=== PATIENT | male | born 1955 | race Caucasian/White ===

== ENCOUNTER 2017-09-03 17:49 | Observation (INO) | payer BC ==
[2017-09-03] MEDS ORDERED: NITROGLYCERIN SL TABS 0.4 MG TAB SUBLINGUAL PRN (17:59)
[2017-09-03] MEDS ORDERED: MORPHINE SULFATE 5 MG/ML SYRINGE IV PRN (17:59)
[2017-09-03] MEDS ORDERED: HEPARIN SODIUM,PORCINE 5,000 UNIT/ML 1 ML VIAL IV PRN (17:59)
--- NOTE | 2017-09-03 18:00 | ED ---
General Adult HPI - General Chief complaint: Dizziness Stated complaint: dizziness Time Seen by Provider: 09/03/17 17:50 Source: patient, RN notes reviewed, old records reviewed Mode of arrival: EMS Limitations: no limitations - History of Present Illness Initial comments: This is a 62-year-old male to the ER for evaluation of chest pain shortness of breath and dizziness. Patient was seen in urgent care transferred to ER. Patient has received medical history positive for ST elevated OH. Patient presented for urgent care and sent to emergency room after noticing low blood pressure urgent care. Patient's 49 been feeling fine since his OH until today. He felt lightheaded and dizzy, with chest pain. Patient is feeling mildly improved from prior. No nausea no vomiting no fevers. - Related Data Home Medications Medication Instructions Recorded Confirmed Albuterol Inhaler [Ventolin Hfa 2 puff INHALATION RT-QID PRN 08/18/17 09/03/17 Inhaler] Aspirin EC [Ecotrin Low Dose] 81 mg PO DAILY 08/18/17 09/03/17 Clotrimazole/Betamethasone Dip 1 applic TOPICAL BID 08/18/17 09/03/17 [Lotrisone Cream] HYDROcodone/APAP 5-325MG [Zimm[place] 1 - 2 tab PO Q4-6H PRN 08/18/17 09/03/17 5-325] LORazepam [Ativan] 0.5 mg PO Q6H PRN 08/18/17 09/03/17 Multivitamins, Thera [Multivitamin 1 tab PO DAILY 08/18/17 09/03/17 (formulary)] Ondansetron HCl [Zofran] 4 mg PO Q6H PRN 08/18/17 09/03/17 Prochlorperazine [Compazine] 10 mg PO Q6H PRN 08/18/17 09/03/17 Tamsulosin [Flomax] 0.4 mg PO DAILY 08/18/17 09/03/17 Dronabinol [Marinol] 2.5 mg PO AC-TID 09/03/17 09/03/17 Losartan [Cozaar] 50 mg PO DAILY 09/03/17 09/03/17 Previous Rx's Medication Instructions Recorded Atorvastatin [Lipitor] 80 mg PO HS #30 tab 08/22/17 Metoprolol Tartrate [Lopressor] 25 mg PO BID #60 tab 08/22/17 Nitroglycerin Sl Tabs [Nitrostat] 0.4 mg SUBLINGUAL Q5M PRN #20 tab 08/22/17 Spironolactone [Aldactone] 25 mg PO DAILY #30 tab 08/22/17 Ticagrelor [Brilinta] 90 mg PO BID #60 tab 08/22/17 Allergies Allergy/AdvReac Type Severity Reaction Status Date / Time Penicillins Allergy Mild Rash/Hives Verified 09/03/17 18:11 peanut Allergy Rash/Hives Verified 09/03/17 18:11 Review of Systems ROS Statement: Those systems with pertinent positive or pertinent negative responses have been documented in the HPI. ROS Other: All systems not noted in ROS Statement are negative. Past Medical History Past Medical History: Cancer, Myocardial Infarction ([place]) Additional Past Medical History / Comment(s): stage 4 pancreatic cancer, lung cancer, liver cancer History of Any Multi-Drug Resistant Organisms: None Reported Past Surgical History: Heart Catheterization With Stent Additional Past Surgical History / Comment(s): hernia repair Past Anesthesia/Blood Transfusion Reactions: No Reported Reaction Past Psychological History: No Psychological Hx Reported Smoking Status: Never smoker Past Alcohol Use History: None Reported Past Drug Use History: None Reported General Exam Limitations: no limitations General appearance: alert, in no apparent distress Head exam: Present: atraumatic, normocephalic, normal inspection Eye exam: Present: normal appearance, PERRL, EOMI. Absent: scleral icterus, conjunctival injection, periorbital swelling ENT exam: Present: normal exam, mucous membranes moist Neck exam: Present: normal inspection. Absent: tenderness, meningismus, lymphadenopathy Respiratory exam: Present: normal lung sounds bilaterally. Absent: respiratory distress, wheezes, rales, rhonchi, stridor Cardiovascular Exam: Present: regular rate, normal rhythm, normal heart sounds. Absent: systolic murmur, diastolic murmur, rubs, gallop, clicks GI/Abdominal exam: Present: soft, normal bowel sounds. Absent: distended, tenderness, guarding, rebound, rigid Extremities exam: Present: normal inspection, full ROM, normal capillary refill. Absent: tenderness, pedal edema, joint swelling, calf tenderness Back exam: Present: normal inspection Neurological exam: Present: alert, oriented X3, CN II-XII intact Psychiatric exam: Present: normal affect, normal mood Skin exam: Present: warm, dry, intact, normal color. Absent: rash Course Vital Signs 09/03/17 17:55 Temperature 98 F Pulse Rate 79 Respiratory 16 Rate Blood Pressure 121/74 O2 Sat by Pulse 96 Oximetry - Reevaluation(s) Reevaluation #1: 09/03/17 18:26 Prior hospitalization is reviewed Reevaluation #2: 09/03/17 18:27 Well work prior to transfer as reviewed EKG Findings - EKG Comments: EKG Findings:: EKG shows normal sinus rhythm rate of 79, NM 16, QRS 100, QTc 433 Medical Decision Making - Medical Decision Making 62 male the ER for evaluation of chest pain and dizziness. Patient's recent ST elevated [place], patient will be admitted for cardiac evaluation and treatment, management and monitoring of hemodynamic state - Radiology Data Radiology results: report reviewed (Chest x-ray is negative for acute disease), image reviewed Critical Care Time Critical Care Time: Yes Total Critical Care Time: 31 Disposition Clinical Impression: Chest pain Disposition: ADMITTED IP TO THIS [facility] Condition: Fair Referrals: Marcos Tomas DO [Primary Care Provider] - 1-2 days
--- NOTE | 2017-09-03 18:24 | XR ---
EXAMINATION TYPE: XR chest 2V DATE OF EXAM: 09/03/2017 COMPARISON: 08/18/2017 HISTORY: Dizziness TECHNIQUE: Frontal and lateral views of the chest are obtained. FINDINGS: There is small linear density in the right midlung. There is slight elevated right diaphra gm. There is no heart failure. There is left central venous catheter with tip in the superior vena ca va. There is no pleural effusion. There is spurring in the thoracic spine. There are chest leads. IMPRESSION: Mild subsegmental atelectasis in the right midlung. No change compared to old exam. Norm al heart. Persistent left side mediastinal density.
[2017-09-03] MEDS: HEPARIN SOD,PORK IN 0.45% NACL 25,000 UNIT in 0.45% NACL 1 500ML.BAG IV SCH ×2 (18:32→18:43)
[2017-09-03] MEDS: HEPARIN SODIUM,PORCINE 5,000 UNIT/ML 1 ML VIAL IV ONE ×2 (18:32→18:35)
[2017-09-03] MEDS: SODIUM CHLORIDE 0.9% 1,000 ML IV SCH (18:35)
[2017-09-03] MEDS ORDERED: ONDANSETRON 4 MG TAB PO PRN (21:30)
[2017-09-03 21:52] LABS: Creatine Kinase 20 U/L (55-170)
[2017-09-03 22:06] LABS: Creatine Kinase MB 0.4 ng/mL (0.0-2.4); Troponin I <0.012 ng/mL (0.000-0.034)
[2017-09-03] MEDS: TICAGRELOR 90 MG TAB PO SCH (22:16)
[2017-09-03] MEDS: METOPROLOL TARTRATE 25 MG TAB PO SCH (22:16)
[2017-09-03] MEDS: ATORVASTATIN 80 MG TAB PO SCH (22:16)
[2017-09-03] MEDS: HYDROcodone/APAP 5-325MG 1 EACH TAB PO PRN (22:19)
[2017-09-04 04:10] LABS: Mean Platelet Volume 7.4; Platelet Count 286 k/uL (150-450)
[2017-09-04 04:25] LABS: Creatine Kinase <20 U/L (55-170)
[2017-09-04 04:40] LABS: Creatine Kinase MB 0.4 ng/mL (0.0-2.4); Troponin I 0.014 ng/mL (0.000-0.034)
[2017-09-04 04:54] LABS: Cholesterol <50 mg/dL (<200); HDL Cholesterol 31 mg/dL (40-60); LDL Cholesterol,Calculated 4 mg/dL (0-99); Triglycerides 73 mg/dL (<150)
[2017-09-04] MEDS: HYDROcodone/APAP 5-325MG 1 EACH TAB PO PRN ×2 (05:36→21:42)
[2017-09-04] MEDS: SODIUM CHLORIDE 0.9% 1,000 ML IV SCH ×2 (05:57→12:21)
[2017-09-04] MEDS: TICAGRELOR 90 MG TAB PO SCH ×2 (08:26→21:43)
[2017-09-04] MEDS: METOPROLOL TARTRATE 25 MG TAB PO SCH ×2 (08:26→21:42)
[2017-09-04] MEDS ORDERED: ASPIRIN 81 MG PO SCH (09:00)
[2017-09-04] MEDS ORDERED: ASPIRIN 325 MG TAB PO SCH (09:00)
--- NOTE | 2017-09-04 09:26 | P.CRDCN ---
History of Present Illness Consult date: 09/04/17 Requesting physician: Grady Patel Consult reason: shortness of breath, hypotension Chief complaint: Weakness, hypotension, and shortness of breath History of present illness: His is a pleasant 62-year-old gentleman with known history of coronary artery disease who presented to the hospital with an acute inferior posterior lateral myocardial infarction in July of this year. He was taken to the cardiac catheterization lab by Dr. Ling where he was found to have a subtotally occluded distal right coronary artery with very large intracoronary thrombus., Mild disease in the circumflex he underwent angioplasty and stenting of the RCA with 3 stents. Echocardiogram with Doppler study performed at that time revealed an ejection fraction of 40-45%. Inferior lateral hypokinesia. Overall the patient states that since his discharge he was up walking around the house without any difficulty. Just recently patient started to notice, that he was feeling more and more weak, dizzy, and lightheaded, he states that with minimal activity he becomes extremely short of breath. He did see Dr. Ling in the office just this past Friday, Dr. Ling apparently made some medication adjustments felt that that may be contributing to his symptoms of weakness and hypotension. Because the exertional dyspnea and dizziness continued he resented to [facility], and was subsequently transferred here. Lab data at [facility] was reviewed, white blood cell count 9, hemoglobin 11.8, platelet count 292. Sodium 136, potassium 4.4, chloride 101, CO2 21, troponin 0.06. Patient does have stage IV pancreatic cancer, with metastases to the liver and lung, history also of hypertension and hyperlipidemia. White blood cell count 9, hemoglobin 11.8, platelet count 292. EKG performed at [facility] shows a normal sinus rhythm with inferior T-wave inversion and Q waves. EKG on presentation here showed a normal sinus rhythm with inferior ST changes and inferior Q waves. Chest x-ray reveals mild subsegmental atelectasis in the right midlung. Let pressure on presentation here 120/70 with a heart rate in the 70s, 96% on room air. Blood pressure this morning 108/60, heart rate in the 60s. Supply and troponins performed here 0.012,.014. Past Medical History Past Medical History: Cancer, Myocardial Infarction ([place]) Additional Past Medical History / Comment(s): stage 4 pancreatic cancer, lung cancer, liver cancer Last Myocardial Infarction Date:: July 2017 History of Any Multi-Drug Resistant Organisms: None Reported Past Surgical History: Heart Catheterization With Stent Additional Past Surgical History / Comment(s): hernia repair Past Anesthesia/Blood Transfusion Reactions: No Reported Reaction Date of Last Stent Placement:: July 2017 Past Psychological History: No Psychological Hx Reported Smoking Status: Never smoker Past Alcohol Use History: None Reported Past Drug Use History: None Reported Medications and Allergies Home Medications Medication Instructions Recorded Confirmed Type Albuterol Inhaler [Ventolin Hfa 2 puff INHALATION RT-QID PRN 08/18/17 09/03/17 History Inhaler] Aspirin EC [Ecotrin Low Dose] 81 mg PO DAILY 08/18/17 09/03/17 History Clotrimazole/Betamethasone Dip 1 applic TOPICAL BID 08/18/17 09/03/17 History [Lotrisone Cream] HYDROcodone/APAP 5-325MG [Liberty 1 - 2 tab PO Q4-6H PRN 08/18/17 09/03/17 History 5-325] LORazepam [Ativan] 0.5 mg PO Q6H PRN 08/18/17 09/03/17 History Multivitamins, Thera [Multivitamin 1 tab PO DAILY 08/18/17 09/03/17 History (formulary)] Ondansetron HCl [Zofran] 4 mg PO Q6H PRN 08/18/17 09/03/17 History Prochlorperazine [Compazine] 10 mg PO Q6H PRN 08/18/17 09/03/17 History Tamsulosin [Flomax] 0.4 mg PO DAILY 08/18/17 09/03/17 History Atorvastatin [Lipitor] 80 mg PO HS #30 tab 08/22/17 09/03/17 Rx Metoprolol Tartrate [Lopressor] 25 mg PO BID #60 tab 08/22/17 09/03/17 Rx Nitroglycerin Sl Tabs [Nitrostat] 0.4 mg SUBLINGUAL Q5M PRN #20 tab 08/22/1703/15 Rx Spironolactone [Aldactone] 25 mg PO DAILY #30 tab 08/22/17 09/03/17 Rx Ticagrelor [Brilinta] 90 mg PO BID #60 tab 08/22/17 09/03/17 Rx Dronabinol [Marinol] 2.5 mg PO AC-TID 09/03/17 09/03/17 History Losartan [Cozaar] 50 mg PO DAILY 09/03/17 09/03/17 History Allergies Allergy/AdvReac Type Severity Reaction Status Date / Time Penicillins Allergy Mild Rash/Hives Verified 09/03/17 18:11 peanut Allergy Rash/Hives Verified 09/03/17 18:11 Physical Exam Vitals: Vital Signs Temp Pulse Pulse Resp BP BP Pulse Ox 09/04/17 04:00 97.3 F L 64 18 107/67 96 09/03/17 23:46 75 18 09/03/17 23:39 99.1 F 75 18 102/58 96 09/03/17 21:20 18 09/03/17 21:00 97.1 F L 88 18 119/67 99 09/03/17 20:01 80 18 117/60 95 09/03/17 18:43 79 16 109/60 96 09/03/17 17:55 98 F 79 16 121/74 96 Intake and Output 09/03/17 09/04/17 09/04/17 22:59 06:59 14:59 Intake Total 140.596 Balance 140.596 Intake: Intake, IV Titration 140.596 Amount Heparin Sod,Pork in 0.45% 140.596 NaCl 25,000 unit In 0.45 % NaCl 1 500ml.bag @ 10.3 UNITS/KG/HR 19.99 mls/hr IV .Q24H [facility] Rx#: [id number] Other: Voiding Method Toilet Toilet # Voids 1 1 Weight 97.1 kg 97.5 kg PHYSICAL EXAMINATION: HEENT: Head is atraumatic, normocephalic. Pupils equal, round. Neck is supple. There is no elevated jugular venous pressure. HEART EXAMINATION: Heart S1, S2 normal. No murmur or gallop heard. CHEST EXAMINATION: Lungs are clear to auscultation and precussion. No chest wall tenderness is noted on palpation or with deep breathing. ABDOMEN: Soft, nontender. Bowel sounds are heard. No organomegaly noted. EXTREMITIES: 2+ peripheral pulses with no evidence of peripheral edema and no calf tenderness noted. NEUROLOGIC patient is awake, alert and oriented -3. . Results 09/04/17 03:36 Cardiac Enzymes 09/03/17 09/04/17 Range/Units 20:58 03:36 CK-MB (CK-2) 0.4 0.4 (0.0-2.4) ng/mL Troponin I <0.012 0.014 (0.000-0.034) ng/mL Coagulation 09/04/17 09/04/17 Range/Units 00:18 06:52 APTT 35.1 H 55.6 H (22.0-30.0) sec Lipids 09/04/17 Range/Units 03:36 Triglycerides 73 (<150) mg/dL Cholesterol <50 (<200) mg/dL HDL Cholesterol 31 L (40-60) mg/dL CBC 09/04/17 Range/Units 03:36 Plt Count 286 (150-450) k/uL Current Medications Generic Name Dose Route Start Last Admin Trade Name Freq PRN Reason Stop Dose Admin Hydrocodone Bitart/Acetaminophen 1 each 09/03/17 21:30 09/04/17 05:36 Liberty 5-325 PO 1 each Q8HR PRN Administration Pain Aspirin 81 mg 09/04/17 09:00 09/04/17 08:26 Aspirin PO 81 mg DAILY [facility] Administration Atorvastatin Calcium 80 mg 09/03/17 22:00 09/03/17 22:16 Lipitor PO 80 mg HS [facility] Administration Heparin Sodium (Porcine) 0 unit 09/03/17 17:59 09/04/17 01:45 Heparin IV 4,000 unit Q6HR PRN Administration Low PTT Protocol Heparin Sodium/Sodium Chloride 500 mls @ 19.99 mls/hr 09/03/17 18:00 01:45 25,000 unit/ Sodium Chloride IV 13.3 units/kg/hr .Q24H [facility]AN 25.82 mls/hr Protocol Titration 10.3 UNITS/KG/HR Sodium Chloride 1,000 mls @ 100 mls/hr 09/03/17 18:00 09/04/17 05:57 Saline 0.9% IV Not Given .Q10H [facility] Metoprolol Tartrate 25 mg 09/03/17 21:00 09/04/17 08:26 Lopressor PO 25 mg BID [facility]AN Administration Morphine Sulfate 4 mg 09/03/17 17:59 Morphine Sulfate IV Q5M PRN Chest Pain Nitroglycerin 0.4 mg 09/03/17 17:59 Nitrostat SUBLINGUAL Q5M PRN Chest Pain Ondansetron HCl 4 mg 09/03/17 21:30 09/03/17 22:16 Zofran PO 4 mg Q6H PRN Administration Nausea Ticagrelor 90 mg 09/03/17 21:30 09/04/17 08:26 Brilinta PO 90 mg BID L[facility]AN Administration Intake and Output 09/03/17 09/04/17 09/04/17 22:59 06:59 14:59 Intake Total 140.596 Balance 140.596 Intake: Intake, IV Titration 140.596 Amount Heparin Sod,Pork in 0.45% 140.596 NaCl 25,000 unit In 0.45 % NaCl 1 500ml.bag @ 10.3 UNITS/KG/HR 19.99 mls/hr IV .Q24H [facility] Rx#: [id number] Other: Voiding Method Toilet Toilet # Voids 1 1 Weight 97.1 kg 97.5 kg 09/04/17 03:36 EKG Interpretations (text) EKG shows normal sinus rhythm with inferior ST T-wave changes and Q waves noted. Assessment and Plan Plan: Assessment and plan #1 symptoms of progressive weakness, dizziness, and exertional shortness of breath. Patient was noted to be hypotensive at [facility] prior to transfer here. Blood pressure this morning 108/60 with a heart rate in the 60s. #2 recent inferior posterior lateral myocardial infarction with stenting of the RCA #3 hypertension history #4 stage IV pancreatic cancer with metastases to the lung and liver #5 hyperlipidemia Plan Echocardiogram with Doppler study performed in July revealed an ejection fraction of 45%, evidence of inferior lateral hypokinesia. We will repeat an echo this admission, we will also request a d-dimer be performed to rule out the possibility of pulmonary embolism. denies having any chest discomfort. No PND or orthopnea. We will continue aspirin, Lipitor, metoprolol tartrate, and Brilinta. Further recommendations to follow. DNP note has been reviewed, I agree with a documented findings and plan of care. Patient was seen and examined.
[2017-09-04] MEDS ORDERED: RX INFO: IV CONTRAST WAS GIVEN 1 EACH MISC MISCELLANE PRN (10:23)
[2017-09-04] MEDS ORDERED: PROCHLORPERAZINE 10 MG TAB PO PRN (11:15)
[2017-09-04] MEDS ORDERED: NITROGLYCERIN SL TABS 0.4 MG TAB SUBLINGUAL PRN (11:15)
[2017-09-04] MEDS ORDERED: LORazepam 0.5 MG TAB PO PRN (11:15)
[2017-09-04] MEDS ORDERED: ALBUTEROL NEBULIZED 2.5 MG/3 ML INHALATION PRN (11:15)
[2017-09-04 11:23] VITALS: BMI 33.6
[2017-09-04 11:28] LABS: Anion Gap 9 mmol/L; Blood Urea Nitrogen 23 mg/dL (9-20); Carbon Dioxide 22 mmol/L (22-30); Chloride 107 mmol/L (98-107); Glucose 87 mg/dL (74-99); Potassium 4.3 mmol/L (3.5-5.1); Sodium 138 mmol/L (137-145)
--- NOTE | 2017-09-04 12:09 | ECHOF ---
Referral Reason:near syncope MEASUREMENTS -------- HEIGHT: 170.2 cm WEIGHT: 97.1 kg BP: 91/48 RVIDd: 3.2 cm (< 3.3) IVSd: 1.6 cm (0.6 - 1.1) LVIDd: 3.6 cm (3.9 - 5.3) LVPWd: 1.3 cm (0.6 - 1.1) IVSs: 1.8 cm LVIDs: 1.2 cm LVPWs: 2.0 cm Ao Diam: 3.1 cm (2.0 - 3.7) AV Cusp: 1.9 cm (1.5 - 2.6) LA Diam: 2.8 cm (2.7 - 3.8) MV EXCURSION: 19.436 mm (> 18.000) MV EF SLOPE: 67 mm/s (70 - 150) EPSS: 0.9 cm MV E Joshua: 0.66 m/s MV DecT: 283 ms MV A Joshua: 0.75 m/s MV E/A Ratio: 0.88 RAP: 5.00 mmHg RVSP: 14.63 mmHg FINDINGS -------- Sinus rhythm. This was a technically difficult study with suboptimal views. The left ventricular size is normal. There is moderate concentric left ventricular hypertrophy. O verall left ventricular systolic function is low-normal with, an EF between 50 - 55 %. The right ventricle is mildly enlarged. The left atrium is normal in size. The right atrium is normal in size. 1.5mg of Definity was utilized for enhancement of images The aortic valve is trileaflet, and appears structurally normal. No aortic stenosis or regurgitation. The mitral valve leaflets are mildly thickened. There is trace mitral regurgitation. Trace tricuspid regurgitation present. The right ventricular systolic pressure, as measured by Dopp ler, is 14.63mmHg. Pulmonic valve appears structurally normal. The aortic root size is normal. The pericardium is normal. CONCLUSIONS -------- 1. Sinus rhythm. 2. This was a technically difficult study with suboptimal views. 3. The left ventricular size is normal. 4. There is moderate concentric left ventricular hypertrophy. 5. Overall left ventricular systolic function is low-normal with, an EF between 50 - 55 %. 6. The right ventricle is mildly enlarged. 7. The left atrium is normal in size. 8. The right atrium is normal in size. 9. 1.5mg of Definity was utilized for enhancement of images 10. The aortic valve is trileaflet, and appears structurally normal. No aortic stenosis or regurgitat ion. 11. The mitral valve leaflets are mildly thickened. 12. There is trace mitral regurgitation. 13. Trace tricuspid regurgitation present. 14. The right ventricular systolic pressure, as measured by Doppler, is 14.63mmHg. 15. Pulmonic valve appears structurally normal. 16. The aortic root size is normal. 17. The pericardium is normal. ASSOCIATE QUALITY ENGINEER: Kiara Kate RDCS
[2017-09-04] MEDS: DRONABINOL 2.5 MG CAP PO SCH ×2 (12:18→16:56)
--- NOTE | 2017-09-04 12:50 | P.PN ---
Progress Note - Text Patient presented with shortness of breath. No angina no chest pain very different from the symptoms he experienced during his prior admission for acute SD. Normal cardiac enzymes. Normal renal function abnormal d-dimer. In view of his pancreatic cancer a CT angios the chest to rule out pulmonary embolism would be appropriate
--- NOTE | 2017-09-04 13:03 | CT ---
EXAMINATION TYPE: CT angio chest DATE OF EXAM: 09/04/2017 COMPARISON: 09/03/2017 chest radiograph HISTORY: Cough, history of pancreatic, lung and liver cancer CT DLP: 458.1 mGycm. Automated Exposure Control for Dose Reduction was Utilized. CONTRAST: CTA scan of the thorax is performed with IV Contrast, patient injected with 100 mL of Omnipaque 350, pulmonary embolism protocol. MIP Images are created on CT scanner and reviewed. FINDINGS: LUNGS: Innumerable bilateral pulmonary nodules are seen the largest on marked on lung window images. The largest pulmonary nodule on the left is located within the left lower lobe near the lingula measu ring 4 mm and the largest on the right measures 5 mm within the right lower lobe on image 66. Scatter ed areas of subsegmental atelectasis are seen as well as air trapping at the lung apices. MEDIASTINUM: Numerous enlarged mediastinal lymph nodes are seen within the prevascular space, right p aratracheal space, pretracheal space, and aorticopulmonary window. The largest in the prevascular spa ce on image 36 measures 1.9 x 1.9 cm. Left supraclavicular adenopathy is also seen somewhat blending with the sternocleidomastoid muscle on image 8 measuring 9 mm in short axis and on image 12 measuring 8 mm in short axis. Left-sided Mediport is noted. There is satisfactory enhancement of the pulmonary artery and its branches, there is no CT evidence for pulmonary embolism. No cardiomegaly or pericard ial effusion is seen. OTHER: Small volume perihepatic ascites is present. The liver is low attenuation, limiting evaluation for hepatic masses and relating to underlying hepatic steatosis. Haziness is seen around the portal vein and multiple nonenlarged lymph nodes are seen in the gastrohepatic ligament region. Spleen is en larged measuring 14.4 cm in longitudinal dimension. Pancreas appears bulbous. Multilevel moderate deg enerative changes of the thoracic spine are present. Lytic lesions are seen of the T2 and T3 vertebra l bodies measuring 5 mm and 11 mm respectively. IMPRESSION: 1. No evidence of pulmonary embolus. 2. Innumerable subcentimeter pulmonary nodules suspicious for metastasis. 3. Extensive mediastinal adenopathy within the superior mediastinum and left supraclavicular adenopat hy also suspicious for metastatic involvement. 4. Small volume abdominal ascites. 5. Hepatic steatosis and splenomegaly.
--- NOTE | 2017-09-04 15:18 | HP ---
HISTORY AND PHYSICAL CHIEF COMPLAINT: Shortness of breath, dizziness and weakness. HISTORY OF PRESENT ILLNESS: This is another recent admission for this 62-year-old, white male. He just went home several days ago after having 4 stents placed in his RCA. He was home when he suddenly became short of breath, dizzy and felt very weak. He became somewhat diaphoretic and blood pressure dropped. He came to the emergency room where he was readmitted. Enzymes are normal. He denied any chest pain, abdominal pain, palpitations, orthopnea, PND, syncope, etc. REVIEW OF SYSTEMS: Otherwise unremarkable. He has had no fever, chills, cough, hemoptysis, nausea, vomiting, hematemesis, melena, hematochezia, dysuria, hematuria, frequency, etc. Past medical history, family history, personal and social histories are all otherwise unremarkable and noncontributory and can be found in his recent admitting and discharge summaries. PHYSICAL EXAM: Blood pressure is 114/60 with a pulse of 94, respirations of 30 and he is afebrile. In general, he appeared to be well developed, well nourished, in no acute distress. Skin color is normal. Skin is warm, dry. Lymph nodes are not enlarged. Head, ears, eyes, nose, mouth, and throat were normal and neck veins were not distended. Thyroid is not enlarged. The chest is clear. The cardiac exam is normal. There are no murmurs or extra sounds. The abdomen is soft, nontender without visceromegaly or masses. Bowel sounds are present. The extremities are normal. Neurologically he is intact. IMPRESSION: 1. Episode of weakness, dizziness and shortness of breath. 2. Hypotension. 3. Coronary artery disease, status post stenting of his right coronary artery. 4. Insomnia. PLAN: 1. Bed rest. 2. IV fluids. 3. Serial EKGs and enzymes. 4. Consult with Cardiology. MMODL / IJN: [id number] /
--- NOTE | 2017-09-04 15:27 | PN ---
PROGRESS NOTE DATE OF SERVICE: 09/04/17 CHIEF COMPLAINT: Shortness of breath, dizziness and weakness with hypotension. HISTORY OF PRESENT ILLNESS: This gentleman seems to be doing fine now. He has had no pain, diaphoresis, shortness of breath, etc. PHYSICAL EXAM: His color is good. Chest is clear. Cardiac exam is unremarkable. The abdomen is soft, nontender. Extremities are normal. IMPRESSION: 1. Episode of shortness of breath, dizziness and weakness with hypotension. 2. Coronary artery disease. PLAN: Continue with IV fluids and await the balance of cardiac enzymes as well as recommendations from Cardiology. MMODL / IJN: [id number] /
[2017-09-04] MEDS: HEPARIN SOD,PORK IN 0.45% NACL 25,000 UNIT in 0.45% NACL 1 500ML.BAG IV SCH (17:44)
[2017-09-04] MEDS ORDERED: METOPROLOL TARTRATE 25 MG TAB PO SCH (21:00)
[2017-09-04] MEDS: ATORVASTATIN 80 MG TAB PO SCH (21:42)
[2017-09-05] MEDS ORDERED: traZODone HCL 50 MG TAB PO PRN (00:02)
[2017-09-05] MEDS: HYDROmorphone 1 MG/ML 1 ML SYRINGE IVP PRN ×2 (00:25→04:43)
[2017-09-05] MEDS: CLOTRIMAZOLE/BETAMETH 1-0.05% CREAM 45 GM TUBE TOPICAL SCH ×2 (00:57→07:36)
[2017-09-05] MEDS: SODIUM CHLORIDE 0.9% 1,000 ML IV SCH ×2 (01:28→09:44)
[2017-09-05 06:09] LABS: Mean Platelet Volume 7.5; Platelet Count 265 k/uL (150-450)
[2017-09-05] MEDS: DRONABINOL 2.5 MG CAP PO SCH ×2 (07:36→13:30)
[2017-09-05] MEDS: METOPROLOL TARTRATE 25 MG TAB PO SCH (07:36)
[2017-09-05] MEDS: TICAGRELOR 90 MG TAB PO SCH (07:36)
[2017-09-05] MEDS: HYDROcodone/APAP 5-325MG 1 EACH TAB PO PRN (07:39)
[2017-09-05] MEDS ORDERED: LOSARTAN 50 MG TAB PO SCH (09:00)
[2017-09-05] MEDS ORDERED: TAMSULOSIN 0.4 MG CAP.ER.24H PO SCH (09:00)
[2017-09-05] MEDS ORDERED: SPIRONOLACTONE 25 MG TAB PO SCH (09:00)
[2017-09-05] MEDS ORDERED: ASPIRIN 81 MG PO SCH (09:00)
[2017-09-05] MEDS: HEPARIN SOD,PORK IN 0.45% NACL 25,000 UNIT in 0.45% NACL 1 500ML.BAG IV SCH (09:44)
--- NOTE | 2017-09-05 11:21 | P.PN ---
Subjective Progress Note Date: 09/05/17 Principal diagnosis: Shortness of breath and hypotension This is a pleasant 62-year-old gentleman with known history of coronary artery disease who presented to the hospital with an acute inferior posterior lateral myocardial infarction in July of this year. He was taken to the cardiac catheterization lab by Dr. Ling where he was found to have a subtotally occluded distal right coronary artery with very large intracoronary thrombus., Mild disease in the circumflex he underwent angioplasty and stenting of the RCA with 3 stents. Echocardiogram with Doppler study performed at that time revealed an ejection fraction of 40-45%. Inferior lateral hypokinesia. Overall the patient states that since his discharge he was up walking around the house without any difficulty. Just recently patient started to notice, that he was feeling more and more weak, dizzy, and lightheaded, he states that with minimal activity he becomes extremely short of breath. He did see Dr. Ling in the office just this past Friday, Dr. Ling apparently made some medication adjustments felt that that may be contributing to his symptoms of weakness and hypotension. Because the exertional dyspnea and dizziness continued he resented to [facility], and was subsequently transferred here. Lab data at [facility] was reviewed, white blood cell count 9, hemoglobin 11.8, platelet count 292. Sodium 136, potassium 4.4, chloride 101, CO2 21, troponin 0.06. Patient does have stage IV pancreatic cancer, with metastases to the liver and lung, history also of hypertension and hyperlipidemia. White blood cell count 9, hemoglobin 11.8, platelet count 292. EKG performed at [facility] shows a normal sinus rhythm with inferior T-wave inversion and Q waves. EKG on presentation here showed a normal sinus rhythm with inferior ST changes and inferior Q waves. Chest x-ray reveals mild subsegmental atelectasis in the right midlung. Let pressure on presentation here 120/70 with a heart rate in the 70s, 96% on room air. Blood pressure this morning 108/60, heart rate in the 60s. Supply and troponins performed here 0.012,.014. 09/05/2017 CAT scan of the chest was performed, did not reveal any evidence of a pulmonary embolism. Innumerable pulmonary nodules suspicious for metastases. Extensive mediastinal adenopathy within the superior mediastinotomy in the left supraclavicular adenopathy also suspicious for metastatic involvement. Echocardiogram with Doppler study reveals an ejection fraction of 50-55%. Breathing today is overall stable, patient states that when he walks the hol[place], he returns back to bed and shortly thereafter becomes short of breath. Denies any chest discomfort. Blood pressure 102/50 with a heart rate in the 70s. Objective - Vital Signs Vital signs: Vital Signs Temp 98.5 F 09/05/17 08:00 Pulse 70 09/05/17 08:00 Resp 16 09/05/17 08:00 BP 111/72 09/05/17 08:00 Pulse Ox 98 09/05/17 08:00 Intake & Output 09/04/17 09/05/17 09/05/17 18:59 06:59 18:59 Intake Total 966 173 9501 Balance 609 783 5431 Weight 97.5 kg 98.1 kg Intake: IV 800 Sodium Chloride 0.9% 1, 800 000 ml @ 100 mls/hr IV . Q10H [facility] Rx#:[id number] Oral 720 1440 Other: Voiding Method Toilet Toilet Toilet # Voids 2 2 # Bowel Movements 0 - Exam PHYSICAL EXAMINATION: HEENT: Head is atraumatic, normocephalic. Pupils equal, round. Neck is supple. There is no elevated jugular venous pressure. HEART EXAMINATION: Heart S1, S2 normal. No murmur or gallop heard. CHEST EXAMINATION: Lungs are clear to auscultation and precussion. No chest wall tenderness is noted on palpation or with deep breathing. ABDOMEN: Soft, nontender. Bowel sounds are heard. No organomegaly noted. EXTREMITIES: 2+ peripheral pulses with no evidence of peripheral edema and no calf tenderness noted. NEUROLOGIC patient is awake, alert and oriented -3. . - Labs CBC & Chem 7: 09/05/17 05:32 09/04/17 06:52 Labs: Abnormal Lab Results - Last 24 Hours (Table) 09/04/17 Range/Units 06:52 BUN 23 H (9-20) mg/dL Assessment and Plan Plan: Assessment and plan #1 symptoms of progressive weakness, dizziness, and exertional shortness of breath. Patient was noted to be hypotensive at [facility] prior to transfer here. #2 recent inferior posterior lateral myocardial infarction with stenting of the RCA #3 hypertension history #4 stage IV pancreatic cancer with metastases to the lung and liver #5 hyperlipidemia Plan Echocardiogram with Doppler study revealed an ejection fraction of 50-55%. CAT scan of the chest negative for pulmonary embolism it did reveal extensive mediastinal adenopathy within the superior mediastinotomy and left supraclavicular adenopathy suspicious for metastatic involvement, innumerable pulmonary nodules suspicious for metastasis. From cardiology's perspective, the patient may be able to be discharged once he is cleared by the primary. We' ll make him a follow-up appointment to see Dr. Ling in the [facility] office post discharge. DNP note has been reviewed, I agree with a documented findings and plan of care. Patient was seen and examined.
[2017-09-05 13:46] VITALS: BP 115/76; PULSE 66; RESP 18; TEMP 98
--- NOTE | 2017-09-06 14:42 | DS ---
DISCHARGE SUMMARY CHIEF COMPLAINT: Shortness of breath, weakness and dizziness. HISTORY OF PRESENT ILLNESS AND PHYSICAL EXAM: The details of this man's history and physical can be found in the initial workup. LABORATORY STUDIES: While he is in the hospital he had laboratory studies, details of which can be found in the laboratory section of his chart. COURSE IN THE HOSPITAL: After admission, he was placed in bedrest, started on intravenous fluids. He was seen by Cardiology. After evaluation it was felt that he did not have any further problems related to his coronary artery disease or stenting and that he could be discharged on the . He will be followed up in the office in several days. FINAL DIAGNOSES: 1. Weakness, dizziness and lightheadedness, etiology unknown. 2. Coronary artery disease. 3. Metastatic carcinoma of the pancreas. OPERATIONS: None. CONSULTATIONS: Cardiology. He is improved. MMBEATRIZ / DUYEN: [id number] /
--- NOTE | 2017-09-15 07:46 | CDI ---
Dr. Patel Mr. Youngblood was seen in Observation from 09/03-09/05 for weakness, dizziness and lightheadedness. It is noted throughout the stay that the patient had an acute DC in July of this year. For proper coding and reporting purposes please clarify if the acute DC in July is: *Within 4 weeks of this admission *Greater than 4 weeks of this admission Please respond to this query in an addendum to the discharge summary. Thank you for your time. ADRIANNE Crowley For further questions, please contact Tosha Flores, software release manager, at . [employer]
== END 2017-09-05 14:48 | disposition home or self-care (01) ==
LOC: EC 17:49 → 6SEL 17:59 → INTOOBSV 17:59
PROVIDERS: ADMIT Family Medicine; ATTEND Family Medicine
DX: R53.1 Weakness (principal); R42 Dizziness and giddiness; I21.4 Non-ST elevation (NSTEMI) myocardial infarction; R06.02 Shortness of breath; I95.9 Hypotension, unspecified; R61 Generalized hyperhidrosis; C25.9 Malignant neoplasm of pancreas, unspecified; C78.7 Secondary malignant neoplasm of liver and intrahepatic bile duct; C78.00 Secondary malignant neoplasm of unspecified lung; R94.31 Abnormal electrocardiogram [ECG] [EKG]; G47.00 Insomnia, unspecified; I10 Essential (primary) hypertension; E78.5 Hyperlipidemia, unspecified; R59.0 Localized enlarged lymph nodes; I25.10 Atherosclerotic heart disease of native coronary artery without angina pectoris; Z95.5 Presence of coronary angioplasty implant and graft; Z98.890 Other specified postprocedural states; Z79.899 Other long term (current) drug therapy; Z79.82 Long term (current) use of aspirin; Z88.0 Allergy status to penicillin; Z91.010 Allergy to peanuts
CPT/HCPCS: 96376 ×3; 96366 ×3; 96375; 96365; 99291; 94640; 93005; 93306; 85379; 80061; 80048; 82550 ×2; 82553 ×2; 84484 ×2; 85049 ×2; 85730; 71020; 71275; G0378 ×3; J1644 ×3; Q0167 ×2; Q9967; Q9957; J1170